=== PATIENT | male | born 1945 | race Hispanic/Latino ===

== ENCOUNTER 2024-08-02 00:22 | Inpatient (IN) ==
[2024-08-02] MEDS ORDERED: IOPAMIDOL 100 ML BOTTLE IV ONE (00:23)
[2024-08-02] MEDS: morphine 4 MG/ML VIAL IV ONE (01:17)
[2024-08-02] MEDS: ONDANSETRON 4 MG/2 ML VIAL IV ONE (01:17)
[2024-08-02 01:32] LABS: Basophils # (Auto) 0.05 K/mcL (0.00-0.30); Basophils % (Auto) 0.5 % (0.0-2.0); Eosinophils # (Auto) 0.59 K/mcL (0.00-0.70); Eosinophils % (Auto) 5.3 % (0.0-7.0); Hematocrit 37.9 % (40.1-51.0); Hemoglobin 12.8 g/dL (13.7-17.5); Lymphocytes # (Auto) 2.61 K/mcL (1.50-4.80); Lymphocytes % (Auto) 23.6 % (15.5-49.0); Mean Cell Volume 93.3 fL (80.0-100.0); Mean Corpuscular HGB Conc 33.8 g/dL (31.0-36.0); Mean Platelet Volume 9.6 fL (8.8-12.5); Monocytes # (Auto) 0.68 K/mcL (0.10-0.90); Monocytes % (Auto) 6.1 % (1.0-12.0); Neutrophils % (Auto) 64.1 % (38.0-78.0); Platelet Count 186 K/mcL (140-440); RBC 4.06 M/mcL (4.63-6.08); Red Cell Distribution Width 13.2 % (11.5-14.5); WBC 11.1 K/mcL (4.5-11.0)
[2024-08-02 01:44] LABS: ALT/SGPT 30 U/L (<40); AST/SGOT 25 U/L (<40); Albumin 3.8 gm/dL (3.2-5.2); Albumin/Globulin Ratio 1.3 (1.0-2.3); Alkaline Phosphatase 77 U/L (39-117); Bilirubin,Total 0.3 mg/dL (0.1-1.0); Blood Urea Nitrogen 27 mg/dL (8-23); Calcium 9.3 mg/dL (8.6-10.4); Carbon Dioxide 23 mmol/L (22-30); Chloride 100 mmol/L (96-108); Glomerular Filtration Rate 47; Glucose 124 mg/dL (70-105); Potassium 4.6 mmol/L (3.3-5.1); Sodium 134 mmol/L (133-145)
[2024-08-02] MEDS ORDERED: MAGNESIUM SULFATE 2 GM/50 ML BAG IV PRN (08:05)
[2024-08-02] MEDS ORDERED: POLYETHYLENE GLYCOL 3350 17 GM PACKET PO PRN (08:05)
[2024-08-02] MEDS ORDERED: SENNOSIDES 1 TABLET PO PRN (08:05)
[2024-08-02] MEDS ORDERED: IPRATROPIUM/ALBUTEROL 3 ML AMPUL.NEB NEB PRN (08:05)
[2024-08-02] MEDS ORDERED: ACETAMINOPHEN 325 MG TABLET PO PRN (08:05)
[2024-08-02] MEDS ORDERED: POTASSIUM CHLORIDE 40 MEQ in DEXTROSE 5% IN WATER 500 ML IV PRN (08:05)
[2024-08-02] MEDS ORDERED: POTASSIUM CHLORIDE 20 MEQ TABLET PO PRN ×2 (08:05)
[2024-08-02] MEDS ORDERED: METOCLOPRAMIDE 10 MG/2 ML VIAL IV PRN (08:05)
[2024-08-02] MEDS ORDERED: ONDANSETRON 4 MG/2 ML VIAL IV PRN (08:05)
[2024-08-02] MEDS ORDERED: MECLIZINE 25 MG TABLET PO PRN (09:25)
[2024-08-02] MEDS: HYDROcodone/APAP 5/325MG TABLET PO PRN (10:28)
[2024-08-02] MEDS: 0.9 % SODIUM CHLORIDE 1,000 ML IV ONE (10:29)
[2024-08-02] MEDS: ENOXAPARIN 40 MG/0.4 ML SYRINGE SQ SCH (10:29)
[2024-08-02] MEDS: ACETAMINOPHEN 325 MG TABLET PO SCH (10:30)
[2024-08-02] MEDS: DOCUSATE SODIUM 100 MG CAPSULE PO SCH (10:30)
[2024-08-02 13:26] LABS: Appearance,Urine Clear (Clear); Bilirubin,Urine Negative (Negative); Color,Urine Yellow; Glucose,Urine (UA) Negative (Negative); Ketones,Urine Negative (Negative); Leukocyte Esterase,Urine Negative /uL (Negative); Nitrate,Urine Negative (Negative); Protein,Urine Trace mg/dL (Negative); Specific Gravity,Urine 1.015 (1.000-1.035); Urine Blood Negative ery/mcL (Negative); Urine RBC 0 /hpf (0-3); Urine Squamous Epithelial Cell 0 /hpf (0-4); Urine WBC 0 /hpf (0-4)
[2024-08-02] MEDS: 0.9 % SODIUM CHLORIDE 10 ML SYRINGE IV SCH (16:23)
[2024-08-02] MEDS: SIMVASTATIN 10 MG TABLET PO SCH (20:10)
[2024-08-03 06:22] LABS: ALT/SGPT 36 U/L (<40); AST/SGOT 26 U/L (<40); Albumin 3.8 gm/dL (3.2-5.2); Albumin/Globulin Ratio 1.2 (1.0-2.3); Alkaline Phosphatase 71 U/L (39-117); Bilirubin,Direct < 0.2 mg/dL (0-0.3); Bilirubin,Total 0.4 mg/dL (0.1-1.0); Blood Urea Nitrogen 27 mg/dL (8-23); Calcium 9.2 mg/dL (8.6-10.4); Carbon Dioxide 25 mmol/L (22-30); Chloride 109 mmol/L (96-108); Globulin 3.2 gm/dL (2.2-3.7); Glomerular Filtration Rate 47; Glucose 109 mg/dL (70-105); Lactate Dehydrogenase 162 U/L (135-225); Phosphorous 3.2 mg/dL (2.5-4.5); Sodium 144 mmol/L (133-145); Triglycerides 121 mg/dL (<150); Uric Acid 5.8 mg/dL (2.5-8.0)
[2024-08-03] MEDS: OMEPRAZOLE 20 MG CAPSULE PO SCH (07:17)
[2024-08-03] MEDS: CITALOPRAM 20 MG TABLET PO SCH (09:03)
[2024-08-04] MEDS: ACETAMINOPHEN 325 MG TABLET PO PRN (22:27)
[2024-08-04] MEDS: morphine 4 MG/ML VIAL IV PRN (23:15)
== END 2024-08-05 11:25 | DRG 183 ==
LOC: MEDSUR 00:22 → ED 00:22 → MEDSUR 08:28
PROVIDERS: ADMIT Internal Medicine; ATTEND Internal Medicine